=== PATIENT | female | born 1950 | race Caucasian/White ===

== ENCOUNTER 2016-08-21 06:50 | Day surgery (SDC) | payer BC ==
--- NOTE | ~2016-08-21 | EGD ---
EGD REPORT [facility] [address] [place] [place] [address] NAME: ISABELA AVILEZ : [birth year] STATUS : REG [facility]#: [id number] AGE: 65 ADM/REG DATE : 08/21/16 MR#: [id number] REPORT SERV DATE: 08/21/16 DICTATED BY: DERIAN OLIVERA DATE: 08/21/16 REPORT STATUS : Draft TRANSCRIBED BY: [facility] DATE: 08/21/16 Endoscopy Center Patient Name: Isabela Avilez Date of : 1950 Attending MD: DERIAN OLIVERA, Procedure Date No Time: 08/21/2016 Procedure: Upper EUS Indications: Dilated pancreatic duct on CT scan Referring MD: YULIYA MOYER MD Medicines: Monitored Anesthesia Care Complications: No immediate complications. Estimated blood loss: None. Procedure: Pre-Anesthesia Assessment: - ASA Grade Assessment: II - A patient with mild systemic disease. After obtaining informed consent, the endoscope was passed under direct vision. Throughout the procedure, the patient's blood pressure, pulse, and oxygen saturations were monitored continuously. The Endoscope was introduced through the mouth, and advanced to the second part of duodenum. The GIF [id number] was introduced through the mouth, and advanced to the second part of duodenum. Findings: Endoscopic Finding : The Z-line was irregular and was found in the lower third of the esophagus. Biopsies were taken with a cold forceps for histology. Verification of patient identification for the specimen was done. Estimated blood loss was minimal. The exam of the esophagus was otherwise normal. Patchy moderate inflammation characterized by erosions was found in the gastric antrum. Biopsies were taken with a cold forceps for histology. Verification of patient identification for the specimen was done. Estimated blood loss was minimal. The exam of the stomach was otherwise normal. The cardia and gastric fundus were normal on retroflexion. The examined duodenum was endoscopically normal. Endosonographic Finding : There was dilation in the common bile duct which measured up to 6 mm. The pancreatic duct had a dilated endosonographic appearance in the pancreatic head, in the body of the pancreas and in the tail of the pancreas. The pancreatic duct measured up to 6 mm in diameter. The pancreatic duct had intraductal stones in the pancreatic head. The pancreatic duct measured up to 6 mm in diameter. Endosonographic imaging of the pancreas showed no mass. EGD REPORT [address] [address] NAME: ISABELA AVILEZ : [birth year] STATUS : REG [facility] PAT#: [id number] AGE: 65 ADM/REG DATE : 08/21/16 MR#: [id number] REPORT SERV DATE: 08/21/16 DICTATED BY: DERIAN OLIVERA DATE: 08/21/16 REPORT STATUS : Draft TRANSCRIBED BY: [employer] [facility] DATE: 08/21/16 No lymphadenopathy seen. There was no sign of significant endosonographic abnormality in the gallbladder body. There was no sign of significant endosonographic abnormality in the examined duodenum. Endosonographic images of the stomach were unremarkable. There was no sign of significant endosonographic abnormality in the esophagus. Impression: - Z-line irregular, in the lower third of the esophagus. Biopsied. - Gastritis. Biopsied. - Normal examined duodenum. - There was dilation in the common bile duct which measured up to 6 mm. - The pancreatic duct had a dilated endosonographic appearance in the pancreatic head, in the body of the pancreas and in the tail of the pancreas. The pancreatic duct measured up to 6 mm in diameter. - The pancreatic duct had intraductal stones in the pancreatic head. The pancreatic duct measured up to 6 mm in diameter. - There was no sign of significant pathology in the gallbladder body. - There was no sign of significant pathology in the examined duodenum. - Endosonographic images of the stomach were unremarkable. - There was no sign of significant pathology in the esophagus. Recommendation: - Return to previous diet. - Continue present medications. - Await path results. - Perform an ERCP today. Procedure Code(s): --- Professional --- 39542, Esophagogastroduodenoscopy, flexible, transoral; with endoscopic ultrasound examination, including the esophagus, stomach, and either the duodenum or a surgically altered stomach where the jejunum is examined distal to the anastomosis 31029, 59, Esophagogastroduodenoscopy, flexible, transoral; with biopsy, single or multiple Diagnosis Code(s): --- Professional --- K22.8, Other specified diseases of esophagus EGD REPORT [address] [place] [address] NAME: ISABELA AVILEZ : [birth year] STATUS : REG [facility] PAT#: [id number] AGE: 65 ADM/REG DATE : 08/21/16 MR#: [id number] REPORT SERV DATE: 08/21/16 DICTATED BY: DERIAN OLIVERA DATE: 08/21/16 REPORT STATUS : Draft TRANSCRIBED BY: [employer] [facility] DATE: 08/21/16 K29.70, Gastritis, unspecified, without bleeding K83.8, Other specified diseases of biliary tract R93.3, Abnormal findings on diagnostic imaging of other parts of digestive tract K86.8, Other specified diseases of pancreas CPT copyright 2013 [employer]. All rights reserved. The codes documented in this report are preliminary and upon welfare adviser review may be revised to meet current compliance requirements. DERIAN OLIVERA, 08/21/2016 9:23 AM Number of Addenda: 0 Note Initiated On: 08/21/2016 8:05 AM Scope Withdrawal Time 0 hours 0 minutes 0 seconds [address] [place] [address]
--- NOTE | ~2016-08-21 | EGD ---
EGD REPORT [facility] [address] [place] [address] NAME: ISABELA AVILEZ : [birth year] STATUS : REG [facility] PAT#: [id number] AGE: 65 ADM/REG DATE : 08/21/16 MR#: [id number] REPORT SERV DATE: 08/21/16 DICTATED BY: DERIAN OLIVERA DATE: 08/21/16 REPORT STATUS : Draft [facility]ANSCRIBED BY: [facility] DATE: 08/21/16 Endoscopy Center Patient Name: Isabela Avilez Date of : 1950 Attending MD: DERIAN OLIVERA, Procedure Date No Time: 08/21/2016 Procedure: ERCP Indications: Abnormal abdominal CT, Chronic pancreatitis on Ultrasound, Pancreatic duct stone Referring MD: YULIYA MOYER MD Medicines: General Anesthesia Complications: No immediate complications. Estimated blood loss: None Procedure: Pre-Anesthesia Assessment: - ASA Grade Assessment: II - A patient with mild systemic disease. After obtaining informed consent, the scope was passed under direct vision. Throughout the procedure, the patient's blood pressure, pulse, and oxygen saturations were monitored continuously. The Duodenoscope was introduced through the mouth, and advanced to the duodenum and used to inject contrast into the ventral pancreatic duct. The ERCP was accomplished without difficulty. The ERCP was technically difficult and complex due to challenging cannulation. Findings: A van owner operator film of the abdomen was obtained. One stone was seen in the head of the pancreas. The ventral pancreatic duct could not be cannulated with the short-nosed traction sphincterotome. Ventral pancreatic sphincterotomy was made with a needle knife using a freehand technique using ERBE electrocautery. There was no post-sphincterotomy bleeding. The ventral pancreatic duct could not be cannulated with the needle-knife sphincterotome. There was a small amount of submucosal injection but despite multiple attempts the pancreatic duct could not be canulated. Impression: - Attempts at a pancreatogram failed. Recommendation: - Return to previous diet. - Continue present medications. - Will discuss further options with patient. Procedure Code(s): --- Professional --- 34487, Endoscopic retrograde cholangiopancreatography (ERCP); with sphincterotomy/papillotomy EGD REPORT [facility] [address]. [address] NAME: ISABELA AVILEZ : [birth year] STATUS : REG [facility] PAT#: [id number] AGE: 65 ADM/REG DATE : 08/21/16 MR#: [id number] REPORT SERV DATE: 08/21/16 DICTATED BY: DERIAN OLIVERA DATE: 08/21/16 REPORT STATUS : Draft TRANSCRIBED BY: [employer] DATE: 08/21/16 Diagnosis Code(s): --- Professional --- R93.5, Abnormal findings on diagnostic imaging of other abdominal regions, including retroperitoneum K86.1, Other chronic pancreatitis K86.8, Other specified diseases of pancreas CPT copyright 2013 [employer]. All rights reserved. The codes documented in this report are preliminary and upon bark press operator review may be revised to meet current compliance requirements. DERIAN OLIVERA, 08/21/2016 9:31 AM Number of Addenda: 0 Note Initiated On: 08/21/2016 8:02 AM Scope Withdrawal Time 0 hours 0 minutes 0 seconds [address] [facility] [place] [address]
[~2016-08-21 06:50] MED LIST: ACTOS30 PO; ATV.5 PO; CAT1 PO; ISOPTIN SR240 MG PO; L20 PO; LEVEMFLXPN SC; LEXAPRO20 PO; LIPITOR10 PO; LOTE20 PO; LOTENSIN HCT1 TA2 PO; MAGOX4 PO; MIACALCIN NAS; NEXIUM40 PO; NORV5 PO; NOVOLOG SC; PEPCID OTC PO; PERCOGESIC1 TAB OR; STRESS600T PO; VITAMIN D1000 UNI1 PO; VITAMIN D31000 UNIT PO; ZOCOR20 PO; ZOFRAN4 PO/SL
[2016-08-21 07:17] LABS: BUN (BLOOD UREA NITROGEN) 22 MG/DL (6-23); CALCIUM, SERUM 9.3 MG/DL (8.5-10.4); CHLORIDE, SERUM 111 MMOL/L (96-112); CO2 (CARBON DIOXIDE) 26 MMOL/L (24-34); CREATININE 1.72 MG/DL (0.55-1.02); GFR AFRICAN AMERICAN 36 ML/MIN (>=60); GFR NON AFRICAN AMERICAN 31 ML/MIN (>=60); GLUCOSE, SERUM 113 MG/DL (60-99); POTASSIUM, SERUM 3.7 MMOL/L (3.5-5.3); SODIUM, SERUM 144 MMOL/L (135-148)
[2016-11-01] MEDS ORDERED: ULTRAM50 PO (13:54)
== END 2016-08-21 12:11 | disposition home or self-care (01) ==
LOC: DMU 06:50
PROVIDERS: Anesthesiology; Internal Medicine Gastroenterology
PROC: 0DB38ZX Excision of Lower Esophagus, Via Natural or Artificial Opening Endoscopic, Diagnostic (ICD-10-PCS; 2016-08-21)
PROC: 0DB68ZX Excision of Stomach, Via Natural or Artificial Opening Endoscopic, Diagnostic (ICD-10-PCS; 2016-08-21)
PROC: 0F7D8ZZ Dilation of Pancreatic Duct, Via Natural or Artificial Opening Endoscopic (ICD-10-PCS; principal; 2016-08-21 08:00)
PROC: 0DJ08ZZ Inspection of Upper Intestinal Tract, Via Natural or Artificial Opening Endoscopic (ICD-10-PCS; 2016-08-21 08:00)
DX: K29.60 Other gastritis without bleeding (principal); K21.0 Gastro-esophageal reflux disease with esophagitis; K86.89 Other specified diseases of pancreas; K83.8 Other specified diseases of biliary tract; I10 Essential (primary) hypertension; E11.9 Type 2 diabetes mellitus without complications; E78.00 Pure hypercholesterolemia, unspecified; K86.1 Other chronic pancreatitis; Q60.0 Renal agenesis, unilateral; Z85.820 Personal history of malignant melanoma of skin; Z90.89 Acquired absence of other organs; Z98.890 Other specified postprocedural states; Z79.899 Other long term (current) drug therapy
CPT/HCPCS: 74330; 80048; 82962; 88305; 93005; A9270-GY; C1725; J0330; J2250; J2405; J3010; Q9967